=== PATIENT | female | born 1970 | race Caucasian/White ===

== ENCOUNTER → 2016-05-01 | Outpatient (CLI) | payer BC ==
[~2016-05-01] MED LIST: AMBIEN 10MG10 MG PO; ANTIVERT 25MG25 MG PO; ATIVAN 0.50.5 MG/TAB PO; CALCIUM200 MG PO; COREG 25MG25 MG/TAB PO; EFFEXOR; LASIX 20MG TABL20 MG PO; LORTAB 5/500 501 TAB PO; MOBIC15 MG PO; MOTRIN 800800 MG/TAB PO; MULTIPLE VITAMI1 CAP PO; NO HOME MEDICATIONS; PENICILLIN V500 MG PO; PRENATAL1 TA1 PO; PRISTIQ 50 MG T50 MG PO; TUMS500 MG PO; ZESTRIL 10MG10 MG PO; ZITHROMAX 250M250 MG PO; ZOFRAN ODT4 MG PO
== END ==
LOC: BHSO 08:57
DX: F33.42 Major depressive disorder, recurrent, in full remission (principal)

== ENCOUNTER → 2016-05-24 | Outpatient (CLI) | payer BC | LOC: COL.PUL 11:08 | DX: R06.02 Shortness of breath (principal); R06.2 Wheezing; F17.290 Nicotine dependence, other tobacco product, uncomplicated ==

== ENCOUNTER → 2016-09-06 | Outpatient (CLI) | payer BC | LOC: BHSO 14:41 | DX: F33.2 Major depressive disorder, recurrent severe without psychotic features (principal) ==

== ENCOUNTER → 2017-01-24 | Outpatient (CLI) | payer BC | LOC: BHSO 08:21 | DX: F43.10 Post-traumatic stress disorder, unspecified (principal) ==

== ENCOUNTER → 2017-10-04 | Outpatient (CLI) | payer BC | LOC: BHSO 09:39 | DX: F43.10 Post-traumatic stress disorder, unspecified (principal) | CPT/HCPCS: G0463 ==

== ENCOUNTER → 2017-12-26 | Outpatient (CLI) | payer BC | LOC: MC.RAD 11-20 10:20 | DX: Z12.31 Encounter for screening mammogram for malignant neoplasm of breast (principal) ==

== ENCOUNTER → 2018-05-01 | Outpatient (CLI) | payer BC | LOC: BHSO 14:27 | DX: F43.10 Post-traumatic stress disorder, unspecified (principal) | CPT/HCPCS: G0463 ==

== ENCOUNTER → 2019-10-22 | Outpatient (CLI) | payer BC | LOC: MC.RAD 14:13 | DX: Z12.31 Encounter for screening mammogram for malignant neoplasm of breast (principal) ==

== ENCOUNTER 2020-05-17 14:06 | Outpatient (CLI) | payer BC ==
[~2020-05-17] VITALS: Ht 172.7 cm; Wt 100.0 kg
[2020-05-17 14:35] VITALS: BP 104/78; PULSE 96; TEMP 98.4
[2020-05-17] MEDS ORDERED: HUMIRA40 MG/0.4 SQ (14:49)
[2020-05-17] MEDS ORDERED: ALDACTONE 25MG25 M1 PO (14:50)
[2020-05-17] MEDS ORDERED: LASIX 20MG TABL20 MG PO (14:50)
[2020-05-17] MEDS ORDERED: NORCO 325 MG-51 TAB PO (14:51)
[2020-05-17] MEDS ORDERED: PRISTIQ 50 MG T50 MG PO (14:51)
[2020-05-17] MEDS ORDERED: COREG 25MG25 MG/TAB PO (14:52)
[2020-05-17] MEDS ORDERED: ZESTRIL 10MG10 MG PO (14:52)
[2020-05-17 15:00] VITALS: BP 110/77; PULSE 94; TEMP 97.6
[2020-05-17 15:15] VITALS: BP 104/67; PULSE 88
[2020-05-17 15:30] VITALS: BP 96/72; PULSE 90
[2020-05-17 15:50] VITALS: BP 104/66; PULSE 88
[2020-05-17 15:57] VITALS: PULSE 86; TEMP 97.6
--- NOTE | 2020-05-17 16:10 | NUR ---
Pt tolerated BAM infusion without issue. IV DC'd with catheter intact. She was ambulated out to ED exit with steady gait.
== END 2020-05-17 17:04 | disposition home or self-care (01) ==
LOC: EUO 14:06
DX: U07.1 COVID-19 (principal)

== ENCOUNTER → 2023-11-13 | Outpatient (CLI) | payer BC ==
[~2023-11-13] MED LIST changes: +ALDACTONE 25MG25 M1 PO; +HUMIRA40 MG/0.4 SQ; +NORCO 325 MG-51 TAB PO
== END ==
LOC: MC.RAD 10:18
DX: Z12.31 Encounter for screening mammogram for malignant neoplasm of breast (principal)